=== PATIENT | male | born 2000 | race Caucasian/White ===

== ENCOUNTER 2023-01-20 19:42 | Emergency (ER) | payer BC, MEDICAID ==
[2023-01-20] MEDS ORDERED: Sodium Chloride 0.9% 2.5 ML Syringe FLUSH PRN (20:31)
[2023-01-20] MEDS ORDERED: diphenhydrAMINE 50 MG/ML SDV IVPUSH ONE (20:31)
[2023-01-20] MEDS ORDERED: Sodium Chloride 0.9% 10 ML Syringe FLUSH PRN (20:31)
[2023-01-20 21:21] LABS: CARBON DIOXIDE,CO2 26.4 mmol/L (21.0-32.0); POTASSIUM,K 3.8 mmol/L (3.5-5.1)
== END 2023-01-20 23:01 | disposition home or self-care (01) ==
LOC: MW.ED 19:42
DX: H51.8 Other specified disorders of binocular movement (principal); F17.210 Nicotine dependence, cigarettes, uncomplicated; Z88.0 Allergy status to penicillin
CPT/HCPCS: 36415; 70450; 80053; 80305; 83735; 84100; 85025; 96374; 99283; J1200; J3490; 99284

== ENCOUNTER 2023-01-26 13:32 | Emergency (ER) | payer BC | END 2023-01-26 16:07 | disposition home or self-care (01) | LOC: MW.ED 13:32 | DX: M25.561 Pain in right knee (principal); Z88.0 Allergy status to penicillin; Z72.0 Tobacco use | CPT/HCPCS: 73560-26-RT; 73560-RT; 99283 ==